=== PATIENT | male | born 1985 | race Caucasian/White ===

== ENCOUNTER 2016-06-24 18:25 | Emergency (ER) | payer OTHER ==
[~2016-06-24] VITALS: Ht 165.1 cm; Wt 83.5 kg
[2016-06-24 18:28] VITALS: TEMP 37.1; Ht 165.1 cm; Wt 83.5 kg
[2016-06-24 20:04] LABS: URINE APPEARANCE CLEAR (CLEAR); URINE COLOR DK YELLOW; URINE EPITHELIAL CELL AUTO >30 /lpf (0-5); URINE NITRITE NEG (NEG); URINE PH 6.5 (4.5-7.5); URINE SPECIFIC GRAVITY 1.026 (1.000-1.030); UROBILINOGEN NEG (NEG)
--- NOTE | 2016-06-24 20:08 | EMERGENCY ROOM VISIT NOTE ---
History Report prepared by Brennon: Nia Combs Under the Supervision of: Dr. Handy Jones M.D. First contact with patient: 18:47 Chief Complaint: MENTAL HEALTH EVALUATION Stated Complaint: 302 History of Present Illness The patient is a 31 year old male who presents to the Emergency Room for a mental health evaluation. The patient was in the ED yesterday for stitches in his right arm. He states that he feel into a window while he was mowing the grass and that is how he injured his arm. Since he got home last night his father states that he has been acting very abnormal. He states that this has been going on for about 24 hours now. Last night the patient was having auditory and visual hallucinations. He kept saying that he was seeing lights flashing. The patient saw people in the [place] and at the neighbor's house that weren't actually there. He was running into the [place] last night to find these people. His father was not feeling safe with the patient. Last night the patient went to bed and then 30 minutes later father states that the patient was standing at the top of the stairs saying, "Here they come. They're coming." Father states that the patient was acting paranoid and thought that people were after him. He is unsure if the patient took any drugs. The patient denies any recent drug or alcohol use. He states, "Apparently last night I thought I saw some stuff that I didn't see." He notes that he "was on edge" today. He denies seeing or hearing anything at this time. He denies feeling depressed. The patient denies SI or HI. He denies any recent fevers or chills. Source of History: patient, parent (father) Onset: 24 hours DISPATCH SPECIALIST Position: other (mental health) Quality: other (paranoid) Timing: constant Note: Pt was having visual and auditory hallucinations. Pt denies SI or HI. Review of Systems See HPI for pertinent positives & negatives. A total of 10 systems reviewed and were otherwise negative. Past Medical & Surgical Medical Problems: (1) Alcohol Abuse-Unspec (2) Asthma, Unspecified, W (Acute) Exacerbation (3) Narcissistic Personality Disorder (4) Opioid Dependence-Unspec (5) Suicidal Ideation (6) Tobacco Use Disorder Old medical records were reviewed. Nurse's notes were reviewed and I agree with. Family History No pertinent history stated. Social History Smoking Status: Current Every Day Smoker Alcohol Use: none Marital Status: Occupation Status: employed Current/Historical Medications No Active Prescriptions or Reported Meds Allergies Coded Allergies: Amoxicillin (Verified Allergy, Unknown, ., 06/24/16) Clavulanic Acid (Verified Allergy, Unknown, 06/24/16) Penicillins (Verified Allergy, Unknown, 06/24/16) Uncoded Allergies: BETALACTAMASEIN (Allergy, Unknown, 03/28/09) Physical Exam Vital Signs Date Time Temp Pulse Resp B/P Pulse Ox O2 Delivery O2 Flow Rate FiO2 06/24/16 21:35 91 18 152/83 95 Room Air 06/24/16 18:28 37.1 102 18 140/85 99 Room Air Physical Exam General: Well developed well nourished non ill appearing young male in no acute distress, breathing comfortably on room air. Normal speech HEENT: Normal cephalic atraumatic. Pupils are equal round and reactive to light. Extraocular movements are intact. Oropharynx is pink with moist mucous membranes. No swelling of the mouth lips or tongue. Neck: Supple with a midline trachea. No meningeal signs or stiffness, no JVD or bruits. No Stridor. Chest: Clear to auscultation bilaterally. No wheezes or rhonchi. No increased work of breathing. Heart: regular rate and rhythm. Abdomen: Soft nontender, nondistended without rebound guarding or rigidity. Extremities: No cyanosis clubbing or edema. No calf tenderness or assymetry Spine/Back. Non tender to palpation. No CVA tenderness Skin: Good turgor without rashes. Neurologic exam: Cranial nerves two through 12 are intact. Motor and sensation are intact and symmetrical throughout. Psych: Mildly agitated but denies SI or HI. Denies current visual hallucinations. Medical Decision & Procedures Laboratory Results 06/24/16 20:15 Red Blood Count 5.66, Mean Corpuscular Volume 90.1, Mean Corpuscular Hemoglobin 32.7, Mean Corpuscular Hemoglobin Concent 36.3, Mean Platelet Volume 10.6, Neutrophils (%) (Auto) 69.2, Lymphocytes (%) (Auto) 22.2, Monocytes (%) (Auto) 6.5, Eosinophils (%) (Auto) 1.7, Basophils (%) (Auto) 0.2, Neutrophils # (Auto) 8.95, Lymphocytes # (Auto) 2.87, Monocytes # (Auto) 0.84, Eosinophils # (Auto) 0.22, Basophils # (Auto) 0.03 06/24/16 20:15 Test 06/24/16 18:39 06/24/16 20:15 Urine Color DK YELLOW Urine Appearance CLEAR (CLEAR) Urine pH 6.5 (4.5-7.5) Urine Specific [place] 1.026 (1.000-1.030) Urine Protein TRACE (NEG) Urine Glucose (UA) NEG (NEG) Urine Ketones 1+ (NEG) Urine Occult Blood NEG (NEG) Urine Nitrite NEG (NEG) Urine Bilirubin NEG (NEG) Urine Urobilinogen NEG (NEG) Urine Leukocyte Esterase TRACE (NEG) Urine WBC (Auto) 5-10 /hpf (0-5) Urine RBC (Auto) 5-10 /hpf (0-4) Urine Hyaline Casts (Auto) 10-30 /lpf (0-5) Urine Epithelial Cells (Auto) >30 /lpf (0-5) Urine Bacteria (Auto) NEG (NEG) Urine Renal Epithelial Cells /lpf (0-5) Urine Crystals See comments (NONE PRSENT) Urine Mucus PRESENT (NONE PRSENT) Urine Opiates Screen NEG (NEG) Urine Methadone, Qualitative NEG (NEG) Urine Barbiturates NEG (NEG) Urine Phencyclidine (PCP) Level NEG (NEG) Ur Amphetamine/Methamphetamine POS (NEG) MDMA (Ecstasy) Screen POS (NEG) Urine Benzodiazepines Screen NEG (NEG) Urine Cocaine Metabolite NEG (NEG) Urine Marijuana (THC) POS (NEG) White Blood Count 12.94 K/uL (4.8-10.8) Red Blood Count 5.66 M/uL (4.7-6.1) Hemoglobin 18.5 g/dL (14.0-18.0) Hematocrit 51.0 % (42-52) Mean Corpuscular Volume 90.1 fL (80-100) Mean Corpuscular Hemoglobin 32.7 pg (25-34) Mean Corpuscular Hemoglobin Concent 36.3 g/dl (32-36) Platelet Count 202 K/uL (130-400) Mean Platelet Volume 10.6 fL (7.4-10.4) Neutrophils (%) (Auto) 69.2 % Lymphocytes (%) (Auto) 22.2 % Monocytes (%) (Auto) 6.5 % Eosinophils (%) (Auto) 1.7 % Basophils (%) (Auto) 0.2 % Neutrophils # (Auto) 8.95 K/uL (1.4-6.5) Lymphocytes # (Auto) 2.87 K/uL (1.2-3.4) Monocytes # (Auto) 0.84 K/uL (0.11-0.59) Eosinophils # (Auto) 0.22 K/uL (0-0.5) Basophils # (Auto) 0.03 K/uL (0-0.2) RDW Standard Deviation 41.6 fL (36.4-46.3) RDW Coefficient of Variation 12.6 % (11.5-14.5) Immature Granulocyte % (Auto) 0.2 % Immature Granulocyte # (Auto) 0.03 K/uL (0.00-0.02) Anion Gap 8.0 mmol/L (3-11) Est Creatinine Clear Calc Drug Dose 124.6 ml/min Estimated GFR () 135.2 Estimated GFR (Non- 116.6 BUN/Creatinine Ratio 20.0 (10-20) Calcium Level 9.4 mg/dl (8.5-10.1) Total Bilirubin 1.3 mg/dl (0.2-1) Direct Bilirubin 0.3 mg/dl (0-0.2) Aspartate Amino Transf (AST/SGOT) 39 U/L (15-37) Alanine Aminotransferase (ALT/SGPT) 88 U/L (12-78) Alkaline Phosphatase 81 U/L (45-117) Total Protein 8.3 gm/dl (6.4-8.2) Albumin 4.6 gm/dl (3.4-5.0) Lipase 83 U/L (73-393) Thyroid Stimulating Hormone (TSH) 1.540 uIu/ml (0.300-4.500) Salicylates Level 1.9 mg/dl (2.8-20) Acetaminophen Level < 2 ug/ml (10-30) Ethyl Alcohol mg/dL < 3.0 mg/dl (0-3) Laboratory studies as stated above per my review. ED Course 1847: Past medical records reviewed. The patient was evaluated in room A5, and a complete history and physical examination were performed. 2109: I reassessed the patient at this time. He denies SI or HI. He does not want to stay in the hospital. I discussed the results and treatment plan with the patient. I answered all pertaining questions that he had. He expressed understanding and verbalized agreement. The patient will be discharged home. Medical Decision Differential diagnoses includes psychiatric disorder, toxicologic process, infection, electrolyte or metabolic abnormality. Medication reconciliation : I have personally reviewed the medication list in the computer as well as with the patient. Hypertension screening: The patient's blood pressure was not significantly elevated and was just minimally elevated likely due to his agitation from being here. This patient comes in as described above. He was brought in by his family. He says there is nothing wrong with him. They say that he's been seen things that aren't there. It was worse last night and has gotten better today. He is paranoid. He denies using any drugs or alcohol although does have a history of this. He denies any physical complaints at present. He has a healing laceration that's been healing well the right arm. He had no head trauma or headache. Denies chest pain or shortness of breath. Multiple blood testing was obtained for medical clearance. His white count is mildly elevated however he is no evidence to suggest infection otherwise. He has a normal neurologic exam. He adamantly denies suicidal or homicidal ideations. His urine drug she did come back positive for marijuana as well as MDMA and amphetamines. These certainly could be causing his symptoms. He seems to be getting better. He does not want to stay in the hospital he does not want help with any drug or alcohol issues. He refuses this. At this point, there are no grounds to keep him here involuntarily. He will be discharged home with the family there and agree with the plan. I encouraged her to follow up with his regular doctor and return to the ER any point if he has worsening symptoms, any new problems or concerns. Impression Primary Impression: Hallucinations Additional Impression: Drug abuse Scribe Attestation The scribe's documentation has been prepared under my direction and personally reviewed by me in its entirety. I confirm that the note above accurately reflects all work, treatment, procedures, and medical decision making performed by me. Departure Information Dispostion Home / Self-Care Prescriptions No Active Prescriptions or Reported Meds Referrals No Doctor, Assigned (PCP) Forms HOME CARE DOCUMENTATION FORM, IMPORTANT VISIT INFORMATION Patient Instructions My [facility] [place] [employer] Additional Instructions Rest. Drink plenty of fluids. Do not use any street drugs or medications that are prescribed to you Return if: Worsening symptoms, thoughts of hurting yourself or others, any new problems or concerns Follow-up with your doctor in 1-2 days for recheck. Problem Qualifiers
[2016-06-24 20:13] LABS: MANUAL MICROSCOPIC REQUIRED? NO; REVIEW REQ? YES
[2016-06-24 20:15] LABS: URINE BILIRUBIN NEG (NEG)
[2016-06-24 20:30] LABS: BENZODIAZEPINE, URINE NEG (NEG); COCAINE,URINE NEG (NEG); PHENCYCLIDINE, URINE NEG (NEG)
[2016-06-24 20:32] LABS: BASO % 0.2 %; BASO ABS # 0.03 K/uL (0-0.2); COMPLETE YES; EOS % 1.7 %; IG% 0.2 %; LYMPH % 22.2 %; LYMPH ABS # 2.87 K/uL (1.2-3.4); MEAN CELL VOLUME 90.1 fL (80-100); MEAN CORPUSCULAR HEMOGLOBIN 32.7 pg (25-34); MEAN CORPUSCULAR HGB CONC 36.3 g/dl (32-36); MEAN PLATELET VOLUME 10.6 fL (7.4-10.4); MONO % 6.5 %; NEUT % 69.2 %; PLATELET COUNT 202 K/uL (130-400); RED BLOOD COUNT 5.66 M/uL (4.7-6.1); WHITE BLOOD COUNT 12.94 K/uL (4.8-10.8)
[2016-06-24 20:47] LABS: URINE MUCUS PRESENT (NONE PRSENT)
[2016-06-24 20:48] LABS: CALCIUM 9.4 mg/dl (8.5-10.1); CREATININE 0.87 mg/dl (0.60-1.40); POTASSIUM 4.1 mmol/L (3.5-5.1)
[2016-06-24 20:57] LABS: ACETAMINOPHEN < 2 ug/ml (10-30)
[2016-06-24 20:59] LABS: THYROID STIMULATING HORMONE 1.54 uIu/ml (0.300-4.500)
[2016-06-24 21:35] VITALS: BP 152/83; PULSE 91; O2SAT 95
== END 2016-06-24 21:36 | disposition home or self-care (01) ==
LOC: C.EDB 18:25 → C.EDA 21:36
DX: R44.3 Hallucinations, unspecified (principal); F19.10 Other psychoactive substance abuse, uncomplicated; J45.909 Unspecified asthma, uncomplicated; F17.200 Nicotine dependence, unspecified, uncomplicated; Z86.59 Personal history of other mental and behavioral disorders; Z88.0 Allergy status to penicillin; Z88.1 Allergy status to other antibiotic agents; Z88.8 Allergy status to other drugs, medicaments and biological substances

== ENCOUNTER → 2017-05-03 | Outpatient (CLI) | payer OTHER | END | disposition home or self-care (01) | LOC: C.RDSM 09:14 | PROVIDERS: ATTEND Family Medicine Sports Medicine | DX: M54.5 Low back pain (principal) ==

== ENCOUNTER 2017-05-21 22:06 | Emergency (ER) | payer OTHER ==
[~2017-05-21] VITALS: Ht 167.6 cm; Wt 96.0 kg
[2017-05-21 22:17] VITALS: TEMP 36.8; Ht 167.6 cm; Wt 96.0 kg
[2017-05-21] MEDS ORDERED: PROPARACAINE HCL 0.5% OP SOLN 15 ML BTL OP STA (22:42)
--- NOTE | 2017-05-21 23:02 | EMERGENCY ROOM VISIT NOTE ---
History Report prepared by Brennon: Chel London Under the Supervision of: Dr. Hunter Valencia M.D. First contact with patient: 22:32 Chief Complaint: EYE ASSESSMENT Stated Complaint: CAN'T SEE OUT OF BOTH EYES History of Present Illness The patient is a 31 year old male who presents to the Emergency Room with complaints of constant bilateral eye burning beginning about three hours ago. The patient reports difficulty opening his eyes and persistent eye watering. He states his vision is "blurry and irritated". The patient was working under a car about 6 hours ago. The patient reports his vision was fine after working on the car. He then went to sleep this evening and woke up with the visionary symptoms. The patient reports light worsens his symptoms. The patient thinks it is possible he may have rubbed his eyes while he was sleeping. He notes attempting to rinse his eyes out with water. The patient does not wear contacts or glasses. Source of History: patient Onset: three hours ago Position: eye (bilateral) Quality: burning Timing: constant Modifying Factors (Worsening): other (light) Review of Systems See HPI for pertinent positives and negatives. A total of ten systems were reviewed and were otherwise negative. Past Medical & Surgical Medical Problems: (1) Alcohol Abuse-Unspec (2) Asthma, Unspecified, W (Acute) Exacerbation (3) Narcissistic Personality Disorder (4) Opioid Dependence-Unspec (5) Suicidal Ideation (6) Tobacco Use Disorder Family History Patient reports no known family medical history. Social History Smoking Status: Never Smoker Alcohol Use: none Marital Status: Occupation Status: employed Current/Historical Medications Scheduled Erythromycin Opth (Erythromycin Opth), 1 APPLN OPB QID Allergies Coded Allergies: Amoxicillin (Verified Allergy, Unknown, ., 05/21/17) Clavulanic Acid (Verified Allergy, Unknown, 05/21/17) Penicillins (Verified Allergy, Unknown, 05/21/17) Uncoded Allergies: BETALACTAMASEIN (Allergy, Unknown, 03/28/09) Physical Exam Vital Signs Date Time Temp Pulse Resp B/P (MAP) Pulse Ox O2 Delivery O2 Flow Rate FiO2 05/22/17 00:43 82 16 160/91 96 05/21/17 22:17 36.8 71 18 176/102 98 Room Air Right Eye Acuity: 20/100 Left Eye Acuity: 20/200 Physical Exam GENERAL: Awake, alert, uncomfortable-appearing, in no distress HENT: Normocephalic, atraumatic. Oropharynx unremarkable. EYES: Mild periorbital erythema. Bilateral conjunctiva and scleral injection. NECK: Supple. No nuchal rigidity. FROM. No JVD. RESPIRATORY: Clear to auscultation. CARDIAC: Regular rate, normal rhythm. Extremities warm and well perfused. Pulses equal. ABDOMEN: Soft, non-distended. No tenderness to palpation. No rebound or guarding. No masses. RECTAL: Deferred. MUSCULOSKELETAL: Chest examination reveals no tenderness. The back is symmetrical on inspection without obvious abnormality. There is no CVA tenderness to palpation. No joint edema. LOWER EXTREMITIES: Calves are equal size bilaterally and non-tender. No edema. No discoloration. NEURO: Normal sensorium. No sensory or motor deficits noted. SKIN: No rash or jaundice noted. Medical Decision & Procedures Medications Administered Medications (Trade) Dose Ordered Sig/Flaco Route Start Time Stop Time Status Last Admin Dose Admin Erythromycin (Erythromycin Oph Oint) 12 appln STK-MED ONCE .ROUTE 05/22/17 00:37 05/22/17 00:38 DC 05/22/17 00:42 12 APPLN Procedure Slit Lamp Examination Indication:bilateral eye pain The both eyes were prepped with topical proparacaine. Slit lamp examination was performed in the standard fashion. Cornea a had a thin overlying film. Anterior chamber clear. Scleral injection is present. no discharge present. Fluorescein examination performed and revealed normal. No ulcerations or abrasions noted. No foreign bodies noted. Negative Navin sign. The patient tolerated the procedure well without complication. ED Course 2236: The patient was evaluated in room C8. A complete history and physical exam was performed. 2354: I discussed the patient with Dr. Vann-Photoresist Printer - He agreed with irrigation and erythromycin ointment. 0042: I reevaluated the patient. Discussed results and discharge instructions: He verbalized understanding and agreement. The patient is ready for discharge. Medical Decision I reviewed the patient's past medical history, medications, and the nursing notes as described above. Differential diagnoses include: foreign body, chemical conjunctivitis, allergic conjunctivitis, cornea abrasion, corneal ulceration, periorbitis. 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 On arrival, the patient is uncomfortable but in NAD, AFVSS. The patient has mild periorbital erythema with b/l conjunctival/scleral injection. Patient's hands appear dirty/greasy c/w with his work as a floor mechanic. Patient's sx most likely chemical conjunctivitis from likely inadvertently rubbing his eyes during sleep. Normal pH. Slit lamp exam demonstrates clear anterior chamber, no corneal abrasions/ulcerations, but has thin film overlying corneas. Acuity impaired with R 20/100 and L 20/ 200However, normal fluorescene exam. Attempted merrick lens irrigation but patient unable tolerate. Thus, irrigated as able without emrrick lens. Case d/w Dr. Vann, ophthalmology on-call, who agrees with plan for irrigation and erythromycin ointment and will see patient on Tuesday. Patient updated and requesting discharge after 500cc irrigation in b/l eyes. Recommend he complete the irrigation with 1L b/l but he his adamant he needs to go to work or he will lose his job. Thus, patient given erythromycin ointment and d/c'd. Findings and plan for follow-up reviewed with patient. Patient agreeable and d/c'd per discharge instructions. Medication Reconcilliation Current Medication List: was personally reviewed by me Blood Pressure Screening Patient's blood pressure: Elevated blood pressure Blood pressure disposition: Elevated BP felt to be situational Consults Time Called: 2350 Consulting Physician: Dr. Vann-Opthalmologist Returned Call: 2353 I discussed the patient with Dr. Vann-Opthalmologist - He agreed with irrigation and erythromycin ointment. Impression Primary Impression: Chemical conjunctivitis of both eyes Scribe Attestation The scribe's documentation has been prepared under my direction and personally reviewed by me in its entirety. I confirm that the note above accurately reflects all work, treatment, procedures, and medical decision making performed by me. Departure Information Dispostion Home / Self-Care Prescriptions Erythromycin Opth (ERYTHROMYCIN OPTH) 12 Appln/3.5 Gm Oint 1 APPLN OPB QID for 7 Days, #1 TUBE Instill ~1 cm ribbon into affected eye(s) up to 6 times daily Prov: Hunter Valencia M.D. 05/22/17 Referrals No Doctor, Assigned (PCP) Emanuel Vann M.D. Forms HOME CARE DOCUMENTATION FORM, IMPORTANT VISIT INFORMATION, WORK / SCHOOL INSTRUCTIONS Patient Instructions ED Chemical Conjunctivitis, My [facility] Additional Instructions Please follow up with ophthalmology, Dr. Vann, on Tuesday for re- evaluation. You likely have a chemical conjunctivitis from rubbing her eyes that were covered in grease. Acetaminophen or ibuprofen for pain and fevers as needed. Erythromycin ointment as directed. Drink plenty of fluids to ensure hydration. Return to the emergency department for worsening symptoms as described in the accompanying instructions.
[2017-05-22] MEDS ORDERED: ERYTHROMYCIN OP OINT 1 GM PKT OP STA (00:31)
[2017-05-22] MEDS ORDERED: ERYOPO OPB (00:34)
[2017-05-22] MEDS ORDERED: ERYTHROMYCIN OP OINT 5 MG/GM 3.5 GM TUBE ONE (00:37)
[2017-05-22 00:43] VITALS: BP 160/91; PULSE 82; O2SAT 96
== END 2017-05-22 00:45 | disposition home or self-care (01) ==
LOC: C.EDB 22:07 → C.EDC 05-22 00:45
DX: H10.213 Acute toxic conjunctivitis, bilateral (principal); J45.909 Unspecified asthma, uncomplicated; F60.81 Narcissistic personality disorder; F17.200 Nicotine dependence, unspecified, uncomplicated; F10.10 Alcohol abuse, uncomplicated; F11.20 Opioid dependence, uncomplicated; Z88.0 Allergy status to penicillin